=== PATIENT | male | born 1990 | race Hispanic/Latino ===

== ENCOUNTER 2023-01-03 10:13 | Inpatient (IN) | payer BC, SELFPAY ==
[2023-01-03] MEDS ORDERED: Cefepime 2 GM VIAL ONE (10:39)
[2023-01-03] MEDS ORDERED: Morphine 4 MG/ML VIAL ONE (10:39)
[2023-01-03 10:47] LABS: Hematocrit 44.5 % (42.0-52.0); Mean Corpuscular HGB CONC 33.7 g/dL (32.0-36.0); Mean Corpuscular Hemoglobin 28.8 pg (27.0-31.0); Mean Corpuscular Volume 85.4 fl (78.0-98.0); Platelet Count 295 10x3/uL (130-400); RBC Distribution Width 11.9 % (11.5-14.5); Red Blood Cell (RBC) Count 5.21 mill/uL (4.70-6.10); White Blood Cell (WBC) Count 55.2 10x3/uL (4.8-10.8)
[2023-01-03 10:48] LABS: Delete Auto Diff?? YES; Manual Diff?? YES
[2023-01-03 11:01] LABS: INR-International Normal Ratio 1.3; PTT 26.5 sec (22.9-36.1); Prothrombin Time 16.9 sec (12.0-14.7)
[2023-01-03 11:10] LABS: ALT (SGPT) 22 U/L (8-55); AST (SGOT) 27 U/L (5-34); Albumin 3.2 g/dL (3.5-5.0); Alkaline Phosphatase 355 U/L (40-110); Anion Gap 21 mmol/L (10-20); BUN (Urea Nitrogen) 12 mg/dL (8.9-20.6); Bilirubin, Total 0.6 mg/dL (0.2-1.2); Calc. Creatinine Clearance 0 mL/min (70-130); Calcium 9.1 mg/dL (7.8-10.44); Carbon Dioxide 21 mmol/L (22-29); Chloride 87 mmol/L (98-107); Estimated GFR 105; Globulin 4.1 g/dL (2.4-3.5); Potassium 4.1 mmol/L (3.5-5.1); Protein, Total 7.3 g/dL (6.0-8.3); Sodium 125 mmol/L (136-145)
[2023-01-03 11:15] LABS: Glucose 464 mg/dL (70-105)
[2023-01-03 11:22] LABS: Band 29 % (5-11); CellaVision Operator ID LAB.GE; Dohle Bodies SLIGHT; Lymphocytes 4 % (21-51); Metamyelocyte 3 % (0-0); Monocytes 4 % (0-10); Myelocyte 1 % (0-0); Neutrophil 59 % (42-75); Platelet Adequacy Comment Platelets Normal; Polychromasia SLIGHT = 2-3 cells HPF (0-2); Reactive Lymphocytes 1 % (0-10); Total Cell Count 105; Vacuoles SLIGHT
[2023-01-03 11:33] LABS: Bacteria/HPF None Seen HPF (None Seen); Bilirubin Negative (Negative); Blood, Urine Negative (Negative); CAUTI Indications for Culture Alt mental st,lethar; Clarity Clear (Clear); Glucose, Urine (Dipstick) Greater than 1000 mg/dL (Negative); Ketone, Urine 100 mg/dL (Negative); Leukocyte Negative Leu/uL (Negative); Nitrite Negative (Negative); Protein, Urine (Dipstick) 50 mg/dL (Neg-Trace); RBC/HPF 0-3 HPF (0-3); Specific Gravity, Urine 1.039 (1.002-1.036); Squamous Epithelial None Seen HPF (0-3); Urobilinogen Normal mg/dL (Less than 2); WBC/HPF 0-3 HPF (0-3); pH, Urine 5.5 (5.0-9.0)
[2023-01-03 11:37] LABS: Urine Culture Reflex No No
[2023-01-03] MEDS ORDERED: Vancomycin 1.5 GRAM/300 ML BAG 1.5 GM in Premix Bag 1 BAG IVPB SCH (12:00)
[2023-01-03] MEDS ORDERED: HYDROcodone/Acetaminophen 10/325 mg Tablet PO PRN ×2 (12:07→14:52)
[2023-01-03] MEDS ORDERED: Acetaminophen 650 MG Suppository PR PRN (12:07)
[2023-01-03] MEDS ORDERED: Communication Order-Pharmacy FS ONE (12:07)
[2023-01-03] MEDS ORDERED: Acetaminophen 325 MG TAB PO PRN (12:07)
[2023-01-03] MEDS ORDERED: HYDROcodone/Acetaminophen 5/325 mg Tablet PO PRN (12:07)
[2023-01-03] MEDS ORDERED: Dextrose 50% Abboject 50 ML SYRINGE SLOW IVP PRN (12:11)
[2023-01-03] MEDS ORDERED: Dextrose 5% in Water 1,000 ML IV PRN (12:11)
[2023-01-03] MEDS ORDERED: Glucagon 1 MG/ML KIT IM PRN (12:11)
[2023-01-03] MEDS ORDERED: HumaLOG 300 UNITS/3 ML VIAL SC PRN (12:11)
[2023-01-03] MEDS ORDERED: Insulin Regular 300 UNITS/3 ML VIAL SC SCH (12:15)
[2023-01-03] MEDS ORDERED: Lactated Ringer's 1,000 ML IV SCH (12:15)
[2023-01-03 13:11] LABS: Anion Gap 18 mmol/L (10-20); BUN (Urea Nitrogen) 11 mg/dL (8.9-20.6); Calc. Creatinine Clearance 0 mL/min (70-130); Carbon Dioxide 19 mmol/L (22-29); Chloride 94 mmol/L (98-107); Estimated GFR 118; Potassium 3.9 mmol/L (3.5-5.1); Sodium 127 mmol/L (136-145)
[2023-01-03 13:20] LABS: Glucose 471 mg/dL (70-105)
[2023-01-03 14:22] LABS: Base Excess 0.4 mEq/L (-2.0 to +3.0); Calcium, Ionized (venous) 0.95 mmol/L (1.16-1.32); Chloride (VBG) 93 mmol/L (98-106); Hematocrit-VBG 44 % (42.0-52.0); Potassium (VBG) 4.38 mmol/L (3.70-5.30); Sodium 127.8 mmol/L (133-146); pH (venous) 7.446 (7.32-7.43)
[2023-01-03 14:43] LABS: Lactic Acid 2.8 mmol/L (0.5-2.2)
[2023-01-03] MEDS ORDERED: Acetaminophen 500 MG TAB PO SCH (15:00)
[2023-01-03] MEDS ORDERED: Ketorolac Tromethamine 30 MG/ML VIAL IVP SCH (15:00)
[2023-01-03] MEDS ORDERED: Morphine 4 MG/ML VIAL SLOW IVP SCH (15:00)
[2023-01-03] MEDS ORDERED: Lactated Ringer's 250 ML IV SCH (15:15)
[2023-01-03 15:37] LABS: Creatinine, Urine 43.58 mg/dL (63-166)
[2023-01-03 16:01] LABS: Lactic Acid 2.5 mmol/L (0.5-2.2)
[2023-01-03] MEDS: metFORMIN 500 MG TAB PO SCH (16:09)
[2023-01-03] MEDS ORDERED: Morphine 2 MG/ML VIAL SLOW IVP PRN (17:15)
[2023-01-03] MEDS: metroNIDAZOLE 500 MG in Premix Bag 1 BAG IVPB SCH (17:32)
[2023-01-03] MEDS: Sodium Chloride 0.9% 1,000 ML IV SCH (18:31)
[2023-01-03] MEDS: Famotidine 20 MG TAB PO SCH (20:23)
[2023-01-03] MEDS: Ibuprofen 600 MG TAB PO PRN (20:23)
[2023-01-03] MEDS: Cefepime 2 GM in Sodium Chloride 0.9% 100 ML IVPB SCH (21:47)
[2023-01-03] MEDS: HumaLOG 300 UNITS/3 ML VIAL SC PRN (21:48)
[2023-01-03] MEDS: Vancomycin 1 GM in Premix Bag 1 BAG IVPB SCH (23:45)
[2023-01-03] MEDS: Morphine 4 MG/ML VIAL SLOW IVP PRN (23:57)
[2023-01-04] MEDS: metroNIDAZOLE 500 MG in Premix Bag 1 BAG IVPB SCH ×4 (01:23→18:25)
[2023-01-04] MEDS: Morphine 4 MG/ML VIAL SLOW IVP PRN ×3 (04:27→14:12)
[2023-01-04] MEDS: Sodium Chloride 0.9% 1,000 ML IV SCH ×4 (04:28→22:38)
[2023-01-04] MEDS: Vancomycin 1 GM in Premix Bag 1 BAG IVPB SCH (08:23)
[2023-01-04] MEDS: metFORMIN 500 MG TAB PO SCH (08:24)
[2023-01-04 09:16] LABS: Hematocrit 39.8 % (42.0-52.0); Hemoglobin 13.3 g/dL (14.0-18.0); Mean Corpuscular HGB CONC 33.4 g/dL (32.0-36.0); Mean Corpuscular Hemoglobin 28.9 pg (27.0-31.0); Mean Corpuscular Volume 86.5 fl (78.0-98.0); Mean Platelet Volume 10.8 fL (7.4-10.4); Platelet Count 226 10x3/uL (130-400); RBC Distribution Width 12.2 % (11.5-14.5); White Blood Cell (WBC) Count 44.5 10x3/uL (4.8-10.8)
[2023-01-04 09:25] LABS: Delete Auto Diff?? YES; Manual Diff?? YES
[2023-01-04 09:27] LABS: Hemoglobin A1c 11.3 % (4.0-6.0)
[2023-01-04 09:32] LABS: Lactic Acid 1.9 mmol/L (0.5-2.2)
[2023-01-04 09:46] LABS: Anion Gap 19 mmol/L (10-20); BUN (Urea Nitrogen) 11 mg/dL (8.9-20.6); Calc. Creatinine Clearance 166 mL/min (70-130); Calcium 7.8 mg/dL (7.8-10.44); Carbon Dioxide 17 mmol/L (22-29); Cardiac Risk 2.8 (Less than 4.5); Chloride 99 mmol/L (98-107); Cholesterol 53 mg/dl (< 200 Desired); Estimated GFR 128; Glucose 281 mg/dL (70-105); HDL Cholesterol 19 mg/dL (>60 Neg Risk); LDL Cholesterol, Calculated 14 mg/dL; Potassium 3.7 mmol/L (3.5-5.1); Sodium 131 mmol/L (136-145); Triglycerides 99 mg/dL (Less than 150)
[2023-01-04] MEDS: Famotidine 20 MG TAB PO SCH ×2 (10:10→22:39)
[2023-01-04] MEDS: Cefepime 2 GM in Sodium Chloride 0.9% 100 ML IVPB SCH ×2 (10:10→22:41)
[2023-01-04] MEDS: Insulin Glargine 30 UNITS/0.3 ML VIAL SC SCH (10:16)
[2023-01-04 10:25] LABS: Band 43 % (5-11); Burr Cells SLIGHT = 2-5 cells HPF (0-1); CellaVision Operator ID LAB.GE; Lymphocytes 1 % (21-51); Metamyelocyte 6 % (0-0); Monocytes 4 % (0-10); Myelocyte 1 % (0-0); Neutrophil 45 % (42-75); Platelet Adequacy Comment Platelets Normal; Polychromasia SLIGHT = 2-3 cells HPF (0-2); Total Cell Count 102; Toxic Granulation SLIGHT; Vacuoles SLIGHT
[2023-01-04] MEDS: Acetaminophen 500 MG TAB PO PRN ×2 (15:41→22:40)
[2023-01-04] MEDS ORDERED: Vancomycin 1 GM in Premix Bag 1 BAG IVPB SCH (16:00)
[2023-01-04] MEDS: Vancomycin 1.5 GRAM/300 ML BAG 1.5 GM in Premix Bag 1 BAG IVPB SCH (16:37)
[2023-01-04] MEDS: Ibuprofen 600 MG TAB PO PRN (16:45)
[2023-01-04] MEDS: HumaLOG 300 UNITS/3 ML VIAL SC PRN ×2 (17:43→23:12)
[2023-01-05] MEDS: metroNIDAZOLE 500 MG in Premix Bag 1 BAG IVPB SCH ×5 (00:29→23:20)
[2023-01-05] MEDS: Vancomycin 1.5 GRAM/300 ML BAG 1.5 GM in Premix Bag 1 BAG IVPB SCH ×3 (01:58→16:39)
[2023-01-05 05:09] LABS: Hematocrit 37.5 % (42.0-52.0); Hemoglobin 12.4 g/dL (14.0-18.0); Mean Corpuscular HGB CONC 33.1 g/dL (32.0-36.0); Mean Corpuscular Hemoglobin 28.6 pg (27.0-31.0); Mean Corpuscular Volume 86.6 fl (78.0-98.0); Mean Platelet Volume 11.1 fL (7.4-10.4); Platelet Count 238 10x3/uL (130-400); RBC Distribution Width 12.3 % (11.5-14.5); Red Blood Cell (RBC) Count 4.33 mill/uL (4.70-6.10); White Blood Cell (WBC) Count 40.4 10x3/uL (4.8-10.8)
[2023-01-05 05:14] LABS: Delete Auto Diff?? YES; Manual Diff?? YES
[2023-01-05 05:37] LABS: ALT (SGPT) 24 U/L (8-55); AST (SGOT) 29 U/L (5-34); Albumin 2.3 g/dL (3.5-5.0); Alkaline Phosphatase 147 U/L (40-110); Anion Gap 15 mmol/L (10-20); BUN (Urea Nitrogen) 11 mg/dL (8.9-20.6); Bilirubin, Total 0.2 mg/dL (0.2-1.2); Calc. Creatinine Clearance 169 mL/min (70-130); Calcium 7.9 mg/dL (7.8-10.44); Carbon Dioxide 22 mmol/L (22-29); Chloride 101 mmol/L (98-107); Estimated GFR 128; Globulin 2.8 g/dL (2.4-3.5); Glucose 260 mg/dL (70-105); Potassium 3.8 mmol/L (3.5-5.1); Protein, Total 5.1 g/dL (6.0-8.3); Sodium 134 mmol/L (136-145)
[2023-01-05 05:40] LABS: Band 39 % (5-11); CellaVision Operator ID LAB.CLH1; Hypochromia SLIGHT = 6-15 cells HPF (0-5); Large Platelets 0.9 % (0-5); Lymphocytes 2 % (21-51); Macrocytosis SLIGHT = 6-15 cells HPF (0-5); Metamyelocyte 1 % (0-0); Monocytes 3 % (0-10); Neutrophil 51 % (42-75); Nucleated RBC (Manual Ct) 1 % (0); Platelet Adequacy Comment Platelets Decreased; Poikilocytosis MODERATE=16-30 cells HPF (0-5); Polychromasia SLIGHT = 2-3 cells HPF (0-2); Reactive Lymphocytes 4 % (0-10); Total Cell Count 116; Toxic Granulation SLIGHT
[2023-01-05] MEDS: Famotidine 20 MG TAB PO SCH ×2 (08:58→20:27)
[2023-01-05] MEDS ORDERED: fentaNYL PF 100 MCG/2 ML SYRINGE ONE (09:35)
[2023-01-05] MEDS ORDERED: SUGAMMADEX SODIUM 200 MG/2 ML VIAL ONE (09:35)
[2023-01-05] MEDS ORDERED: Lidocaine 1% PF 5 ML VIAL ONE (10:40)
[2023-01-05] MEDS ORDERED: Dexamethasone 20 MG/5 ML VIAL ONE (10:40)
[2023-01-05] MEDS ORDERED: PHENYLEPHRINE-NS 100 MCG/ML 10 ML SYRINGE ONE (10:40)
[2023-01-05] MEDS ORDERED: Rocuronium Bromide 10 MG/ML (10ML VIAL) ONE (10:40)
[2023-01-05] MEDS ORDERED: Ondansetron PF 4 MG/2 ML Vial ONE (10:40)
[2023-01-05] MEDS ORDERED: PROPOFOL 200 MG/20 ML VIAL ONE (10:40)
[2023-01-05] MEDS ORDERED: Ketorolac Tromethamine 30 MG/ML VIAL ONE (10:40)
[2023-01-05] MEDS: Sodium Chloride 0.9% 1,000 ML IV SCH ×4 (10:53→20:27)
[2023-01-05] MEDS: Insulin Glargine 30 UNITS/0.3 ML VIAL SC SCH (10:54)
[2023-01-05] MEDS ORDERED: HYDROmorphone 0.5 MG/0.5 ML SYRINGE ONE (11:26)
[2023-01-05] MEDS ORDERED: Sodium Chloride 0.9% 1,000 ML IV SCH (12:00)
[2023-01-05] MEDS ORDERED: Acetaminophen 500 MG TAB PO SCH (12:00)
[2023-01-05] MEDS ORDERED: Ondansetron PF 4 MG/2 ML Vial IVP PRN (12:08)
[2023-01-05] MEDS ORDERED: diphenhydrAMINE 50 MG/ML VIAL IM PRN (12:08)
[2023-01-05] MEDS ORDERED: diphenhydrAMINE 50 MG/ML VIAL IVP PRN (12:08)
[2023-01-05] MEDS ORDERED: diphenhydrAMINE 25 MG CAP PO PRN (12:08)
[2023-01-05] MEDS ORDERED: Ondansetron HCl/PF 4 MG/2 ML Vial IVP PRN (12:08)
[2023-01-05] MEDS ORDERED: Promethazine HCl 25 MG/ML VIAL IM PRN ×2 (12:08)
[2023-01-05] MEDS ORDERED: HYDROmorphone 10 mg/100 ml CADD IVPB PRN (12:08)
[2023-01-05] MEDS ORDERED: Naloxone HCl 0.4 mg/ml Vial IV PRN (12:08)
[2023-01-05] MEDS ORDERED: HYDROmorphone 2 MG/ML VIAL SLOW IVP PRN (12:08)
[2023-01-05] MEDS ORDERED: PACU-Morphine 4MG/ML VIAL SLOW IVP PRN (12:08)
[2023-01-05] MEDS ORDERED: Communication Order-Pharmacy FS SCH (12:15)
[2023-01-05] MEDS ORDERED: fentaNYL 50 mcg/mL 1 mL Vial ONE (12:26)
[2023-01-05] MEDS: Cefepime 2 GM in Sodium Chloride 0.9% 100 ML IVPB SCH ×2 (14:24→20:27)
[2023-01-05 15:50] LABS: Vancomycin, Trough 14.3 ug/mL
[2023-01-05] MEDS ORDERED: Vancomycin 1 GM in Premix Bag 1 BAG IVPB SCH ×2 (16:15→23:59)
[2023-01-05] MEDS: HumaLOG 300 UNITS/3 ML VIAL SC PRN ×2 (16:55→21:46)
[2023-01-05] MEDS: VANCOMYCIN 1.25 GM/250 ML BAG 1.25 GM in Premix Bag 1 BAG IVPB SCH (16:57)
[2023-01-05] MEDS: Acetaminophen 500 MG TAB PO SCH ×2 (18:57→23:19)
[2023-01-05] MEDS: Ketorolac Tromethamine 30 MG/ML VIAL IVP PRN (20:27)
[2023-01-06] MEDS: VANCOMYCIN 1.25 GM/250 ML BAG 1.25 GM in Premix Bag 1 BAG IVPB SCH ×3 (01:52→17:32)
[2023-01-06] MEDS: Sodium Chloride 0.9% 1,000 ML IV SCH ×2 (01:52→12:16)
[2023-01-06 04:31] LABS: #Monocytes 1.9 thou/uL (0.11-0.59); #Neutrophils 33.6 thou/uL (1.40-6.50); %Basophils 0.1 % (0.0-1.0); %Lymphocytes 4.2 % (21.0-51.0); %Monocytes 4.4 % (0.0-10.0); %Neutrophils 75.6 % (42.0-75.0); Mean Corpuscular Hemoglobin 28.9 pg (27.0-31.0); Mean Corpuscular Volume 87.7 fl (78.0-98.0); Mean Platelet Volume 11.5 fL (7.4-10.4); Platelet Count 255 10x3/uL (130-400); RBC Distribution Width 12.6 % (11.5-14.5); Red Blood Cell (RBC) Count 3.08 mill/uL (4.70-6.10); White Blood Cell (WBC) Count 44.4 10x3/uL (4.8-10.8)
[2023-01-06 04:38] LABS: Hemoglobin A1c 11.7 % (4.0-6.0)
[2023-01-06 04:49] LABS: Hemoglobin 8.9 g/dL (14.0-18.0)
[2023-01-06 04:50] LABS: Manual Diff?? YES
[2023-01-06 04:55] LABS: ALT (SGPT) 23 U/L (8-55); AST (SGOT) 25 U/L (5-34); Alkaline Phosphatase 121 U/L (40-110); Anion Gap 14 mmol/L (10-20); BUN (Urea Nitrogen) 13 mg/dL (8.9-20.6); Bilirubin, Total 0.2 mg/dL (0.2-1.2); Calc. Creatinine Clearance 159 mL/min (70-130); Calcium 7.5 mg/dL (7.8-10.44); Carbon Dioxide 20 mmol/L (22-29); Chloride 101 mmol/L (98-107); Estimated GFR 126; Globulin 2.4 g/dL (2.4-3.5); Glucose 373 mg/dL (70-105); Potassium 4.3 mmol/L (3.5-5.1); Protein, Total 4.4 g/dL (6.0-8.3); Sodium 131 mmol/L (136-145)
[2023-01-06 05:48] LABS: Band 8 % (5-11); CellaVision Operator ID lab.sh2; Hypochromia SLIGHT = 6-15 cells HPF (0-5); Lymphocytes 1 % (21-51); Monocytes 10 % (0-10); Neutrophil 82 % (42-75); Platelet Adequacy Comment Platelets Normal; Polychromasia SLIGHT = 2-3 cells HPF (0-2); Smudge Cells 1.9 %; Total Cell Count 103; Toxic Granulation SLIGHT
[2023-01-06] MEDS: Acetaminophen 500 MG TAB PO SCH ×4 (06:17→23:27)
[2023-01-06] MEDS: traMADol HCl 50 MG TAB PO PRN (06:17)
[2023-01-06] MEDS: metroNIDAZOLE 500 MG in Premix Bag 1 BAG IVPB SCH ×4 (06:18→23:30)
[2023-01-06] MEDS ORDERED: Insulin Glargine 30 UNITS/0.3 ML VIAL SC SCH ×2 (09:00→09:12)
[2023-01-06] MEDS: Famotidine 20 MG TAB PO SCH ×2 (10:00→20:37)
[2023-01-06] MEDS: HumaLOG 300 UNITS/3 ML VIAL SC SCH ×2 (11:32→17:36)
[2023-01-06] MEDS: Cefepime 2 GM in Sodium Chloride 0.9% 100 ML IVPB SCH ×2 (11:32→21:33)
[2023-01-06] MEDS: HumaLOG 300 UNITS/3 ML VIAL SC PRN ×2 (11:33→17:36)
[2023-01-06 16:35] LABS: Vancomycin, Trough 13.3 ug/mL
[2023-01-06] MEDS ORDERED: VANCOMYCIN 1.25 GM/250 ML BAG 1.25 GM in Premix Bag 1 BAG IVPB SCH (18:00)
[2023-01-06] MEDS: Vancomycin 1.5 GRAM/300 ML BAG 1.5 GM in Premix Bag 1 BAG IVPB SCH (18:22)
[2023-01-06] MEDS: Insulin Glargine 30 UNITS/0.3 ML VIAL SC SCH (20:37)
[2023-01-07] MEDS: Vancomycin 1.5 GRAM/300 ML BAG 1.5 GM in Premix Bag 1 BAG IVPB SCH ×2 (02:59→09:51)
[2023-01-07 05:10] LABS: Hematocrit 26.3 % (42.0-52.0); Hemoglobin 8.5 g/dL (14.0-18.0); Mean Corpuscular HGB CONC 32.3 g/dL (32.0-36.0); Mean Corpuscular Hemoglobin 28.8 pg (27.0-31.0); Mean Corpuscular Volume 89.2 fl (78.0-98.0); Mean Platelet Volume 10.8 fL (7.4-10.4); Platelet Count 302 10x3/uL (130-400); RBC Distribution Width 12.8 % (11.5-14.5); Red Blood Cell (RBC) Count 2.95 mill/uL (4.70-6.10); White Blood Cell (WBC) Count 35.4 10x3/uL (4.8-10.8)
[2023-01-07 05:12] LABS: Delete Auto Diff?? YES; Manual Diff?? YES
[2023-01-07 05:33] LABS: ALT (SGPT) 22 U/L (8-55); AST (SGOT) 22 U/L (5-34); Albumin 1.9 g/dL (3.5-5.0); Alkaline Phosphatase 104 U/L (40-110); Anion Gap 9 mmol/L (10-20); BUN (Urea Nitrogen) 13 mg/dL (8.9-20.6); Bilirubin, Total Less than 0.2 mg/dL (0.2-1.2); Calc. Creatinine Clearance 174 mL/min (70-130); Calcium 7.2 mg/dL (7.8-10.44); Carbon Dioxide 23 mmol/L (22-29); Chloride 104 mmol/L (98-107); Estimated GFR 130; Globulin 2.4 g/dL (2.4-3.5); Glucose 294 mg/dL (70-105); Potassium 3.7 mmol/L (3.5-5.1); Protein, Total 4.3 g/dL (6.0-8.3); Sodium 132 mmol/L (136-145)
[2023-01-07 05:35] LABS: Band 5 % (5-11); CellaVision Operator ID LAB.CLH1; Hypochromia SLIGHT = 6-15 cells HPF (0-5); Lymphocytes 8 % (21-51); Monocytes 5 % (0-10); Neutrophil 81 % (42-75); Platelet Adequacy Comment Platelets Normal; Polychromasia SLIGHT = 2-3 cells HPF (0-2); Reactive Lymphocytes 2 % (0-10); Total Cell Count 103
[2023-01-07] MEDS: traMADol HCl 50 MG TAB PO PRN ×2 (06:11→21:55)
[2023-01-07] MEDS: metroNIDAZOLE 500 MG in Premix Bag 1 BAG IVPB SCH ×2 (06:13→13:22)
[2023-01-07] MEDS: Acetaminophen 500 MG TAB PO SCH ×4 (06:15→21:55)
[2023-01-07] MEDS: Famotidine 20 MG TAB PO SCH ×2 (08:06→20:22)
[2023-01-07] MEDS: Ketorolac Tromethamine 30 MG/ML VIAL IVP PRN (08:07)
[2023-01-07] MEDS: Insulin Glargine 30 UNITS/0.3 ML VIAL SC SCH ×2 (08:08→20:22)
[2023-01-07] MEDS: HumaLOG 300 UNITS/3 ML VIAL SC SCH ×3 (08:09→17:36)
[2023-01-07] MEDS: Cefepime 2 GM in Sodium Chloride 0.9% 100 ML IVPB SCH (09:50)
[2023-01-07] MEDS: CEFAZOLIN 2 GM in Sodium Chloride 0.9% 100 ML IVPB SCH ×2 (15:42→20:22)
[2023-01-07 17:30] LABS: Vancomycin, Trough 11.3 ug/mL
[2023-01-07] MEDS: HumaLOG 300 UNITS/3 ML VIAL SC PRN (17:37)
[2023-01-08] MEDS: Ketorolac Tromethamine 30 MG/ML VIAL IVP PRN (05:08)
[2023-01-08] MEDS: CEFAZOLIN 2 GM in Sodium Chloride 0.9% 100 ML IVPB SCH ×3 (05:08→21:09)
[2023-01-08] MEDS: Ibuprofen 600 MG TAB PO PRN (05:09)
[2023-01-08 05:56] LABS: #Basophils 0.1 thou/uL (0.0-0.2); #Eosinphils 0.3 thou/uL (0.0-0.7); #Monocytes 1.6 thou/uL (0.11-0.59); #Neutrophils 18.2 thou/uL (1.40-6.50); %Basophils 0.2 % (0.0-1.0); %Eosinophils 0.8 % (0.0-10.0); %Lymphocytes 11.1 % (21.0-51.0); %Neutrophils 55.4 % (42.0-75.0); Hemoglobin 10.5 g/dL (14.0-18.0); Mean Corpuscular HGB CONC 32.8 g/dL (32.0-36.0); Mean Corpuscular Hemoglobin 28.8 pg (27.0-31.0); Mean Corpuscular Volume 87.9 fl (78.0-98.0); Mean Platelet Volume 10.4 fL (7.4-10.4); Platelet Count 444 10x3/uL (130-400); RBC Distribution Width 12.6 % (11.5-14.5); Red Blood Cell (RBC) Count 3.64 mill/uL (4.70-6.10); White Blood Cell (WBC) Count 32.8 10x3/uL (4.8-10.8)
[2023-01-08 06:00] LABS: Manual Diff?? YES
[2023-01-08 06:22] LABS: ALT (SGPT) 28 U/L (8-55); AST (SGOT) 32 U/L (5-34); Albumin 2.2 g/dL (3.5-5.0); Alkaline Phosphatase 97 U/L (40-110); Anion Gap 9 mmol/L (10-20); BUN (Urea Nitrogen) 7 mg/dL (8.9-20.6); Bilirubin, Total Less than 0.2 mg/dL (0.2-1.2); Calc. Creatinine Clearance 199 mL/min (70-130); Calcium 7.7 mg/dL (7.8-10.44); Carbon Dioxide 29 mmol/L (22-29); Chloride 102 mmol/L (98-107); Estimated GFR 132; Globulin 2.8 g/dL (2.4-3.5); Glucose 202 mg/dL (70-105); Potassium 3.7 mmol/L (3.5-5.1); Sodium 136 mmol/L (136-145)
[2023-01-08 06:32] LABS: Band 8 % (5-11); CellaVision Operator ID lab.sh2; Eosinophils 2 % (0-10); Hypochromia SLIGHT = 6-15 cells HPF (0-5); Lymphocytes 10 % (21-51); Macrocytosis SLIGHT = 6-15 cells HPF (0-5); Monocytes 17 % (0-10); Neutrophil 63 % (42-75); Nucleated RBC (Manual Ct) 1 % (0); Platelet Adequacy Comment Platelets Increased; Polychromasia SLIGHT = 2-3 cells HPF (0-2); Total Cell Count 100; Toxic Granulation SLIGHT
[2023-01-08] MEDS: Acetaminophen 500 MG TAB PO SCH ×3 (06:46→18:03)
[2023-01-08] MEDS: HumaLOG 300 UNITS/3 ML VIAL SC PRN (07:21)
[2023-01-08] MEDS: HumaLOG 300 UNITS/3 ML VIAL SC SCH ×3 (09:50→18:02)
[2023-01-08] MEDS: Insulin Glargine 30 UNITS/0.3 ML VIAL SC SCH ×2 (09:50→21:09)
[2023-01-08] MEDS: Famotidine 20 MG TAB PO SCH ×2 (09:51→21:09)
[2023-01-08] MEDS: traMADol HCl 50 MG TAB PO PRN ×2 (11:21→21:35)
[2023-01-08 14:59] VITALS: BMI 28.6
[2023-01-09] MEDS: Acetaminophen 500 MG TAB PO SCH ×5 (00:29→23:45)
[2023-01-09] MEDS: CEFAZOLIN 2 GM in Sodium Chloride 0.9% 100 ML IVPB SCH ×3 (05:46→20:28)
[2023-01-09 06:40] LABS: Hematocrit 29.2 % (42.0-52.0); Hemoglobin 9.6 g/dL (14.0-18.0); Mean Corpuscular HGB CONC 32.9 g/dL (32.0-36.0); Mean Corpuscular Hemoglobin 29.3 pg (27.0-31.0); Mean Platelet Volume 10.3 fL (7.4-10.4); Platelet Count 398 10x3/uL (130-400); RBC Distribution Width 12.7 % (11.5-14.5); Red Blood Cell (RBC) Count 3.28 mill/uL (4.70-6.10); White Blood Cell (WBC) Count 22.9 10x3/uL (4.8-10.8)
[2023-01-09 06:43] LABS: Delete Auto Diff?? YES; Manual Diff?? YES
[2023-01-09 07:04] LABS: ALT (SGPT) 30 U/L (8-55); AST (SGOT) 36 U/L (5-34); Albumin 2.4 g/dL (3.5-5.0); Alkaline Phosphatase 79 U/L (40-110); Anion Gap 12 mmol/L (10-20); BUN (Urea Nitrogen) 7 mg/dL (8.9-20.6); Bilirubin, Total 0.2 mg/dL (0.2-1.2); Calc. Creatinine Clearance 172 mL/min (70-130); Calcium 7.9 mg/dL (7.8-10.44); Carbon Dioxide 27 mmol/L (22-29); Chloride 102 mmol/L (98-107); Estimated GFR 129; Glucose 154 mg/dL (70-105); Protein, Total 5.4 g/dL (6.0-8.3); Sodium 137 mmol/L (136-145)
[2023-01-09 07:40] LABS: Band 8 % (5-11); CellaVision Operator ID LAB.GE; Eosinophils 1 % (0-10); Giant Platelets 0.9 % (0-5); Large Platelets 0.9 % (0-5); Lymphocytes 11 % (21-51); Metamyelocyte 11 % (0-0); Monocytes 4 % (0-10); Myelocyte 3 % (0-0); Neutrophil 59 % (42-75); Platelet Adequacy Comment Platelets Normal; Polychromasia MODERATE = 3-4 cells HPF (0-2); Promyelocytes 1 % (0-0); Reactive Lymphocytes 2 % (0-10); Total Cell Count 109
[2023-01-09] MEDS: Insulin Glargine 30 UNITS/0.3 ML VIAL SC SCH ×2 (08:53→20:29)
[2023-01-09] MEDS: HumaLOG 300 UNITS/3 ML VIAL SC SCH ×3 (08:53→18:44)
[2023-01-09] MEDS: Famotidine 20 MG TAB PO SCH ×2 (08:54→20:28)
[2023-01-09] MEDS: HumaLOG 300 UNITS/3 ML VIAL SC PRN (18:44)
[2023-01-10] MEDS: CEFAZOLIN 2 GM in Sodium Chloride 0.9% 100 ML IVPB SCH ×3 (05:13→21:20)
[2023-01-10] MEDS: Acetaminophen 500 MG TAB PO SCH ×3 (05:13→17:53)
[2023-01-10] MEDS: HumaLOG 300 UNITS/3 ML VIAL SC PRN ×3 (05:14→17:54)
[2023-01-10 05:41] LABS: Hematocrit 27.8 % (42.0-52.0); Mean Corpuscular HGB CONC 32.4 g/dL (32.0-36.0); Mean Corpuscular Hemoglobin 29.1 pg (27.0-31.0); Mean Platelet Volume 10.4 fL (7.4-10.4); Platelet Count 419 10x3/uL (130-400); RBC Distribution Width 12.8 % (11.5-14.5); Red Blood Cell (RBC) Count 3.09 mill/uL (4.70-6.10); White Blood Cell (WBC) Count 23.1 10x3/uL (4.8-10.8)
[2023-01-10 05:45] LABS: Delete Auto Diff?? YES; Manual Diff?? YES
[2023-01-10 06:07] LABS: ALT (SGPT) 25 U/L (8-55); AST (SGOT) 23 U/L (5-34); Albumin 2.7 g/dL (3.5-5.0); Alkaline Phosphatase 73 U/L (40-110); Anion Gap 9 mmol/L (10-20); BUN (Urea Nitrogen) 9 mg/dL (8.9-20.6); Bilirubin, Total 0.2 mg/dL (0.2-1.2); Calc. Creatinine Clearance 162 mL/min (70-130); Calcium 8.7 mg/dL (7.8-10.44); Carbon Dioxide 30 mmol/L (22-29); Chloride 102 mmol/L (98-107); Estimated GFR 127; Globulin 2.9 g/dL (2.4-3.5); Glucose 170 mg/dL (70-105); Potassium 4.5 mmol/L (3.5-5.1); Protein, Total 5.6 g/dL (6.0-8.3); Sodium 136 mmol/L (136-145)
[2023-01-10 06:11] LABS: Anisocytosis SLIGHT = 6-15 cells HPF (0-5); Band 14 % (5-11); CellaVision Operator ID lab.sh2; Eosinophils 2 % (0-10); Lymphocytes 13 % (21-51); Macrocytosis SLIGHT = 6-15 cells HPF (0-5); Monocytes 7 % (0-10); Neutrophil 64 % (42-75); Platelet Adequacy Comment Platelets Increased; Polychromasia MODERATE = 3-4 cells HPF (0-2); Total Cell Count 100
[2023-01-10] MEDS: HumaLOG 300 UNITS/3 ML VIAL SC SCH ×3 (10:44→17:54)
[2023-01-10] MEDS: Famotidine 20 MG TAB PO SCH ×2 (10:46→21:20)
[2023-01-10] MEDS: Insulin Glargine 30 UNITS/0.3 ML VIAL SC SCH ×2 (10:47→21:20)
[2023-01-10] MEDS ORDERED: Morphine 4 MG/ML VIAL SLOW IVP SCH (12:15)
[2023-01-11] MEDS: Acetaminophen 500 MG TAB PO SCH ×3 (00:12→12:14)
[2023-01-11] MEDS: HumaLOG 300 UNITS/3 ML VIAL SC PRN ×2 (06:36→12:13)
[2023-01-11] MEDS: CEFAZOLIN 2 GM in Sodium Chloride 0.9% 100 ML IVPB SCH (06:36)
[2023-01-11 06:55] LABS: Hematocrit 29.8 % (42.0-52.0); Hemoglobin 9.5 g/dL (14.0-18.0); Mean Corpuscular HGB CONC 31.9 g/dL (32.0-36.0); Mean Corpuscular Volume 90.9 fl (78.0-98.0); Mean Platelet Volume 10.3 fL (7.4-10.4); Platelet Count 415 10x3/uL (130-400); RBC Distribution Width 13.2 % (11.5-14.5); Red Blood Cell (RBC) Count 3.28 mill/uL (4.70-6.10); White Blood Cell (WBC) Count 20.4 10x3/uL (4.8-10.8)
[2023-01-11 07:01] LABS: Delete Auto Diff?? YES; Manual Diff?? YES
[2023-01-11 07:26] LABS: Band 9 % (5-11); CellaVision Operator ID LAB.MJL; Eosinophils 2 % (0-10); Lymphocytes 16 % (21-51); Metamyelocyte 8 % (0-0); Monocytes 5 % (0-10); Myelocyte 4 % (0-0); Neutrophil 56 % (42-75); Platelet Adequacy Comment Platelets Increased; Polychromasia MODERATE = 3-4 cells HPF (0-2); Total Cell Count 100
[2023-01-11 07:42] LABS: ALT (SGPT) 18 U/L (8-55); AST (SGOT) 18 U/L (5-34); Albumin 2.9 g/dL (3.5-5.0); Alkaline Phosphatase 70 U/L (40-110); Anion Gap 9 mmol/L (10-20); BUN (Urea Nitrogen) 11 mg/dL (8.9-20.6); Bilirubin, Total 0.2 mg/dL (0.2-1.2); Calc. Creatinine Clearance 143 mL/min (70-130); Calcium 8.8 mg/dL (7.8-10.44); Carbon Dioxide 29 mmol/L (22-29); Chloride 97 mmol/L (98-107); Estimated GFR 122; Globulin 3.1 g/dL (2.4-3.5); Glucose 258 mg/dL (70-105); Potassium 4.4 mmol/L (3.5-5.1); Sodium 131 mmol/L (136-145)
[2023-01-11] MEDS: Famotidine 20 MG TAB PO SCH (08:41)
[2023-01-11] MEDS: HumaLOG 300 UNITS/3 ML VIAL SC SCH ×2 (08:42→12:14)
[2023-01-11] MEDS ORDERED: Insulin Glargine 30 UNITS/0.3 ML VIAL SC SCH ×2 (09:00→21:00)
[2023-01-11 12:08] VITALS: BP 124/83; TEMP 98.7
[2023-01-11] MEDS ORDERED: Morphine 4 MG/ML VIAL SLOW IVP SCH (12:15)
[2023-01-11 18:14] LABS: Fungus Stain Final report (.)
== END 2023-01-11 13:01 | disposition home or self-care (01) | DRG 854 ==
LOC: ERS 10:13 → 2NO 12:10 → T4-B 01-08 15:31
PROVIDERS: ADMIT Family Medicine; ATTEND Internal Medicine
PROC: 3E03329 Introduction of Other Anti-infective into Peripheral Vein, Percutaneous Approach (ICD-10-PCS; 2023-01-03)
PROC: 0KBH0ZZ Excision of Right Thorax Muscle, Open Approach (ICD-10-PCS; principal; 2023-01-05)
PROC: 0KBJ0ZZ Excision of Left Thorax Muscle, Open Approach (ICD-10-PCS; 2023-01-05)
PROC: 0J970ZZ Drainage of Back Subcutaneous Tissue and Fascia, Open Approach (ICD-10-PCS; 2023-01-05)
PROC: 02HV33Z Insertion of Infusion Device into Superior Vena Cava, Percutaneous Approach (ICD-10-PCS; 2023-01-08)
PROC: B548ZZA Ultrasonography of Superior Vena Cava, Guidance (ICD-10-PCS; 2023-01-08)
DX: A41.01 Sepsis due to Methicillin susceptible Staphylococcus aureus (principal); E11.52 Type 2 diabetes mellitus with diabetic peripheral angiopathy with gangrene; E87.20 Acidosis, unspecified; L03.818 Cellulitis of other sites; E87.1 Hypo-osmolality and hyponatremia; R65.20 Severe sepsis without septic shock; M54.04 Panniculitis affecting regions of neck and back, thoracic region; M72.9 Fibroblastic disorder, unspecified; E11.65 Type 2 diabetes mellitus with hyperglycemia; L72.3 Sebaceous cyst; Z20.822 Contact with and (suspected) exposure to COVID-19; M60.88 Other myositis, other site
CPT/HCPCS: 36415; 36416; 36569; 71260; 80048; 80053; 80061; 80202; 81001; 82010; 82550; 82570; 82805; 83036; 83605; 83930; 84145; 84156; 85025; 85060; 85610; 85730; 87040; 87070; 87077; 87086; 87102; 87149; 87186; 87205; 87206; 87635; 93306; 94760; 97139; C1713; J0692; J1100; J1170; J1650; J1815; J1885; J2270; J2272; J2405; J2704; J3010; J3370; J3370-JW; J3490; J7050; J7120

== ENCOUNTER 2023-01-23 16:49 | Emergency (ER) | payer BC, SELFPAY | END 2023-01-23 18:29 | disposition home or self-care (01) | LOC: ERS 16:49 | DX: Z45.2 Encounter for adjustment and management of vascular access device (principal) | CPT/HCPCS: 99283 ==